=== PATIENT | female | born 1960 | race Caucasian/White ===

== ENCOUNTER 2017-12-21 12:42 | Day surgery (SDC) | payer BC ==
[2017-12-21] MEDS ORDERED: PROPOFOL 60 ML (15:09)
[2017-12-21] MEDS ORDERED: LIDOCAINE 2% (SDV) 5 ML INJ (15:09)
== END 2017-12-21 16:17 | disposition home or self-care (01) ==
LOC: GIL 12:42
DX: K92.1 Melena (principal); K29.50 Unspecified chronic gastritis without bleeding; K21.9 Gastro-esophageal reflux disease without esophagitis; K62.1 Rectal polyp; K63.5 Polyp of colon; K64.8 Other hemorrhoids; I10 Essential (primary) hypertension; E11.9 Type 2 diabetes mellitus without complications
CPT/HCPCS: 43239; 88305